=== PATIENT | female | born 1975 | race Caucasian/White ===

== ENCOUNTER 2021-12-17 03:30 | Emergency (ER) | payer BC ==
[2021-12-17 03:51] VITALS: BP 114/83; PULSE 83
[2021-12-17] MEDS ORDERED: Bupivacaine 0.5% 10 ML SDV INJECT ONE (03:57)
[2021-12-17] MEDS ORDERED: Lidocaine 1% with EPINEPHrine 1:100,000 10 ML MDV INJECT ONE (03:57)
[2021-12-17] MEDS ORDERED: Lidocaine 1% with EPINEPHrine 1:100,000 20 ML MDV ONE (04:00)
[2021-12-17] MEDS ORDERED: Lidocaine 1% with EPINEPHrine 1:100,000 20 ML MDV INJECT ONE (04:01)
== END 2021-12-17 04:45 | disposition home or self-care (01) ==
LOC: JD.ED 03:30
DX: S01.81XA Laceration without foreign body of other part of head, initial encounter (principal); E03.9 Hypothyroidism, unspecified; Z79.899 Other long term (current) drug therapy; Z90.710 Acquired absence of both cervix and uterus; Z87.891 Personal history of nicotine dependence; W54.0XXA Bitten by dog, initial encounter
CPT/HCPCS: 12011; 99283; J3490

== ENCOUNTER 2024-02-03 01:08 | Emergency (ER) | payer BC ==
[2024-02-03] MEDS: diphenhydrAMINE 50 MG/ML SDV IVPUSH ONE (02:01)
[2024-02-03] MEDS: methylPREDNISolone Sodium Succinate 125 MG/2 ML SDV IVPUSH ONE (02:01)
[2024-02-03 04:12] VITALS: BP 132/94; PULSE 72
== END 2024-02-03 04:10 | disposition home or self-care (01) ==
LOC: JD.ED 01:08
DX: S00.252A Superficial foreign body of left eyelid and periocular area, initial encounter (principal); H57.89 Other specified disorders of eye and adnexa; E03.9 Hypothyroidism, unspecified; Z90.710 Acquired absence of both cervix and uterus; Z79.890 Hormone replacement therapy; Z79.899 Other long term (current) drug therapy; Y77.11 Contact lens associated with adverse incidents
CPT/HCPCS: 96374; 96375; 99283-25; 99284; J1200; J2919